=== PATIENT | female | born 1940 | race Caucasian/White ===

== ENCOUNTER 2017-09-18 10:30 | Outpatient (CLI) | payer MEDICARE, BC ==
--- NOTE | 2017-09-18 13:01 | MMO ---
BILATERAL SCREENING MAMMOGRAM: Date: 09/18/17 COMPARISON: 09/12/16, 09/11/15, 09/07/14. HISTORY: Screening mammography. FINDINGS: This patient's mammogram was interpreted with the assistance of computer-aided detection. Scattered fibroglandular densities are present. There is no dominant mass or architectural distortion . No concerning microcalcifications. IMPRESSION: BIRADS 1: Negative Annual screening mammography recommended. POS: [facility]
== END 2017-09-18 10:31 | disposition home or self-care (01) ==
LOC: SCSMAMMO 10:30
PROVIDERS: ATTEND Family Medicine
DX: Z12.31 Encounter for screening mammogram for malignant neoplasm of breast (principal)
CPT/HCPCS: 77067; G0202

== ENCOUNTER 2018-11-09 09:53 | Outpatient (CLI) | payer MEDICARE, BC ==
--- NOTE | 2018-11-09 10:44 | MMO ---
BILATERAL SCREENING MAMMOGRAM: DATE: 11/09/18 HISTORY: 78-year-old female for screening mammography. COMPARISON: 09/18/17, 09/12/16, 09/11/15. FINDINGS: Bilateral MLO and CC views of the breasts show scattered fibroglandular breast tissue. There is no ev idence of suspicious mass, suspicious cluster of microcalcifications, or area of architectural distor tion. Interpretation of this mammogram was performed with the assistance of computer-aided detection. IMPRESSION: BIRADS 1: Negative Annual screening mammography is recommended. POS: BILLY
== END 2018-11-09 09:54 | disposition home or self-care (01) ==
LOC: SCSMAMMO 09:53
PROVIDERS: ATTEND Family Medicine
DX: Z12.31 Encounter for screening mammogram for malignant neoplasm of breast (principal)
CPT/HCPCS: 77067

== ENCOUNTER 2021-10-01 17:00 | Outpatient (CLI) | payer MEDICARE, BC | END 2021-10-01 17:01 | disposition home or self-care (01) | LOC: SCSRAD 17:00 | PROVIDERS: ATTEND Family Medicine | DX: J18.9 Pneumonia, unspecified organism (principal); J98.8 Other specified respiratory disorders | CPT/HCPCS: 71046; U0003; U0005 ==